=== PATIENT | male | born 1980 | race Caucasian/White ===

== ENCOUNTER 2018-08-26 18:14 | Emergency (ER) | payer SELFPAY ==
[2014-07-27 13:37] VITALS: Wt 66.7 kg
[~2018-08-26 18:14] MED LIST: BUPR-126 PO; CEP500 PO; MULT-1379 PO; NICO-219 BC; QUET100T29 PO; TRAZ150T8 PO
--- NOTE | 2018-08-26 18:21 | ER Report ---
History and Physical Time Seen By MD: 18:21 HPI/ROS CHIEF COMPLAINT: desiring admission for depression and methamphetamine abuse. HISTORY OF PRESENT ILLNESS: This is a 38 year old male. He has been depressed more than usual recently. Has occasional suicidal thoughts, but no plan at this time. Had relapsed with meth use and stopped all his regular medications, including anti-depressant. He would like help with getting on an anti-depressant and help with the meth. Denies other health problems at this time. Allergies: Coded Allergies: No Known Drug Allergies (Unverified , 07/26/14) Home Meds Reported Medications Nicotine Polacrilex (NICORETTE) 2 Mg Gum, 2 MG BC Q1-2H PRN for NICOTINE REPLACEMENT, GUM 01/16/17 Multivits, W-,Other Min (THERA-M) 1 Each Tablet, 1 EACH PO QDAY 01/16/17 Quetiapine Fumarate (SEROQUEL) 100 Mg Tablet, 100 MG PO QHS 01/16/17 Bupropion Hcl (WELLBUTRIN SR) 150 Mg Tablet.er, 300 MG PO QAM, #90 TAB 2 Refills 07/29/14 Reviewed Nurses Notes: Yes Hx Smoking: Yes Smoking Status: Current: Every Day Smoker Exposure to Second Hand Smoke?: No Hx Substance Use Disorder: Yes Hx Alcohol Use: Yes (rairly ) Constitutional Vital Sign - Last 24 Hours 08/26/18 18:33 Temp 98.4 Pulse 75 Resp 16 Pulse Ox 92 O2 Delivery Room Air Physical Exam Patient left AMA prior to me performing a physical exam. Medical Decision Making ED Course/Re-evaluation ED Course After taking a brief history, I let the patient know I would be back after performing a procedure on another patient. He left prior to finishing the visit. Did not feel there was adequate cause for an emergency shelter process. Decision to Disposition Date: Aug 26, 2018 Decision to Disposition Time: 18:38 Depart Departure Latest Vital Signs Vital Signs Date Time Temp Pulse Resp B/P (MAP) Pulse Ox O2 Delivery O2 Flow Rate FiO2 08/26/18 18:33 98.4 75 16 92 Room Air Impression: Primary Impression: Depression Additional Impression: Amphetamine use disorder, severe Condition: Condition Unchanged Disposition: AGAINST MED ADV / DISCONT CARE Problem Qualifiers CARLIN KOCH MD Aug 26, 2018 18:21
== END 2018-08-26 18:48 | disposition left against medical advice (07) ==
LOC: ER 18:40
DX: F32.9 Major depressive disorder, single episode, unspecified (principal); F15.20 Other stimulant dependence, uncomplicated

== ENCOUNTER → 2018-09-24 | Outpatient (CLI) | payer SELFPAY ==
[2014-07-27 13:37] VITALS: BMI 22.0
== END ==
LOC: LAB 08:16
PROVIDERS: ATTEND Nurse Practitioner Psychiatric/Mental Health
DX: Z79.899 Other long term (current) drug therapy (principal)
CPT/HCPCS: 36415; 80178

== ENCOUNTER → 2018-10-23 | Outpatient (CLI) | payer SELFPAY ==
[2014-07-27 13:37] VITALS: BMI 22.0
== END ==
LOC: LAB 14:36
DX: Z51.81 Encounter for therapeutic drug level monitoring (principal); Z79.899 Other long term (current) drug therapy
CPT/HCPCS: 36415; 80178